=== PATIENT | male | born 1970 | race Caucasian/White ===

== ENCOUNTER 2016-08-31 20:46 | Emergency (ER) | payer OTHER ==
[~2016-08-31] VITALS: Ht 185.4 cm; Wt 99.8 kg
[~2016-08-31 20:46] MED LIST: DOXYCYCLINE100 M5 PO; GLUCOPHAGE1000 MG PO; GLUCOPHAGE500 MG PO; NORCO 10/325 MG1 TAB PO; XANAX XR1 MG PO; ZESTRIL20 MG PO; ZESTRIL30 MG PO
[2016-08-31 20:59] VITALS: BP 165/100
--- NOTE | 2016-08-31 23:24 | NUR ---
PT TAKEN TO BED 4
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
--- NOTE | 2016-08-31 23:34 | NUR ---
Dr. Rutherford evaluating patient at bedside.
[2016-08-31] MEDS ORDERED: HYDROmorphone PFS 2 MG/ML SYR IM ONE (23:40)
[2016-08-31] MEDS ORDERED: ONDANSETRON 4 MG/2 ML VIAL IM ONE (23:40)
[2016-09-01 00:50] VITALS: BP 142/87
--- NOTE | 2016-09-01 00:50 | NUR ---
Patient discharged with v/s stable. Written and verbal after care instructions given and explained. Patient alert, oriented and verbalized understanding of instructions. Ambulatory with steady gait. All questions addressed prior to discharge. ID band removed. Patient advised to follow up with PMD. Rx of FIORINAL 50/325/40 AND ZOFRAN ODT 4MG given. Patient educated on indication of medication including possible reaction and side effects. Opportunity to ask questions provided and answered.
== END 2016-09-01 00:50 | disposition home or self-care (01) ==
LOC: MED 20:46
DX: G43.909 Migraine, unspecified, not intractable, without status migrainosus (principal); I10 Essential (primary) hypertension
CPT/HCPCS: 96372; 99284; J1170; J2405

== ENCOUNTER 2016-09-27 09:16 | Emergency (ER) | payer OTHER ==
[~2016-09-27] VITALS: Ht 185.4 cm; Wt 99.8 kg
[2016-09-27 09:33] VITALS: BP 148/98
--- NOTE | 2016-09-27 09:40 | NUR ---
PT AMBULATED TO BED 2
--- NOTE | 2016-09-27 09:50 | NUR ---
46M BIB SELF TO ED WITH C/O MIGRAINE HEADACHE X 8 HOURS TODAY; PT DENIES INJURY OR TRAUMA TO HEAD AT THIS TIME. DENIES DIARRHEA; SKIN IS PINK/WARM/DRY; AAOX4 WITH EVEN AND STEADY GAIT; LUNGS CLEAR BL; HR EVEN AND REGULAR; PT DENIES ANY FEVER, CP, SOB, OR COUGH AT THIS TIME; PATIENT STATES PAIN OF 10/10 AT THIS TIME; VSS; PATIENT POSITIONED FOR COMFORT; HOB ELEVATED; BEDRAILS UP X2; BED DOWN. ER MD MADE AWARE OF PT STATUS.
--- NOTE | 2016-09-27 10:23 | NUR ---
AAO PT BEING ASSESS BY DR BANSAL AT BEDSIDE
[2016-09-27] MEDS ORDERED: ONDANSETRON 4 MG/2 ML VIAL IVP ONE (10:25)
[2016-09-27] MEDS ORDERED: HYDROmorphone 1 MG/ML AMP IVP ONE ×2 (10:25→12:35)
[2016-09-27] MEDS ORDERED: NACL 0.9% 1,000 ML IV ONE (10:25)
[2016-09-27 13:05] VITALS: BP 138/88
--- NOTE | 2016-09-27 13:05 | NUR ---
Patient discharged with v/s stable. Written and verbal after care instructions given and explained. Patient alert, oriented and verbalized understanding of instructions. Ambulatory with steady gait. All questions addressed prior to discharge. ID band removed. Patient advised to follow up with PMD. Rx of ZOFRAN, TYLENOL WITH CODEINE given. Patient educated on indication of medication including possible reaction and side effects. Opportunity to ask questions provided and answered.
== END 2016-09-27 13:05 | disposition home or self-care (01) ==
LOC: MED 09:16
DX: G43.909 Migraine, unspecified, not intractable, without status migrainosus (principal); I10 Essential (primary) hypertension; E11.9 Type 2 diabetes mellitus without complications; E78.00 Pure hypercholesterolemia, unspecified
CPT/HCPCS: 82948; 96361; 96374; 96375; 96376; 99285; J1170; J2405; J7030

== ENCOUNTER 2016-10-26 14:17 | Emergency (ER) | payer OTHER ==
[~2016-10-26] VITALS: Ht 185.4 cm; Wt 107.5 kg
[2016-10-26 14:26] VITALS: BP 160/112
--- NOTE | 2016-10-26 15:54 | NUR ---
Patient ambulated to bed 7. RN evaluating patient at bedside.
--- NOTE | 2016-10-26 15:56 | NUR ---
Note undone in EDM - 10/26/16 at 1617 by [facility] 46M BIB SELF C/O 20 YEAR CHRONIC MIGRAINE HEADACHE W/ INCREASED PAIN X LAST NIGHT; PT C/O THROBBING RT SIDED MIGRAINE, NON-RADIATING, 8/10 X LAST NIGHT; DENIES TRAUMA OR INJURY TO HEAD; DENIES BLURRY VISION AT THIS TIME; PT STATES HAD 4 EPISODES OF VOMITING TODAY, BUT DENIES DIARRHEA AT THIS TIME; ABDOMEN SOFT, NON-TENDER, ACTIVE BOWEL SOUNDS X4 QUADRANTS; PT A&OX4, PERRL, BL LUNG SOUNDS CLEAR, RR EVEN/UNLABORED, SKIN IS WARM/DRY/INTACT AT THIS TIME; STEADY GAIT; PT RESTING IN BED W/ HOB ELEVATED AND IN LOWEST POSITION; POSITIONED FOR COMFORT; ER MD MADE AWARE OF STATUS. WILL CONTINUE TO MONITOR.
--- NOTE | 2016-10-26 15:56 | NUR ---
46M BIB SELF C/O 20 YEAR CHRONIC MIGRAINE HEADACHE W/ INCREASED PAIN X LAST NIGHT; PT C/O THROBBING RT SIDED MIGRAINE, NON-RADIATING, 8/10 X LAST NIGHT; DENIES TRAUMA OR INJURY TO HEAD; DENIES BLURRY VISION AT THIS TIME; PT STATES HAD 4 EPISODES OF VOMITING TODAY, BUT DENIES DIARRHEA AT THIS TIME; ABDOMEN SOFT, NON-TENDER, ACTIVE BOWEL SOUNDS X4 QUADRANTS; PT NOTED W/ TACHYCARDIA ON THE MONITOR AT THIS TIME. PT A&OX4, PERRL, BL LUNG SOUNDS CLEAR, RR EVEN/UNLABORED, SKIN IS WARM/DRY/INTACT AT THIS TIME; STEADY GAIT; PT RESTING IN BED W/ HOB ELEVATED AND IN LOWEST POSITION; POSITIONED FOR COMFORT; ER MD MADE AWARE OF STATUS. WILL CONTINUE TO MONITOR.
--- NOTE | 2016-10-26 16:19 | NUR ---
ER MD DR. BANSAL EVALUATING PT AT BEDSIDE.
[2016-10-26] MEDS ORDERED: diphenhydrAMINE 50 MG/ML VIAL IVP ONE (16:55)
[2016-10-26] MEDS ORDERED: ONDANSETRON 4 MG/2 ML VIAL IVP ONE (16:55)
[2016-10-26] MEDS ORDERED: HYDROmorphone PFS 2 MG/ML SYR IVP ONE (16:55)
[2016-10-26] MEDS ORDERED: HYDROmorphone 1 MG/ML AMP IVP ONE (18:30)
--- NOTE | 2016-10-26 19:01 | NUR ---
IV removed, catheter intact and site benign. Applied folded 4x4 gauze and tape to stop bleeding. PT TOLERATED PROCEDURE WELL.
[2016-10-26 19:07] VITALS: BP 135/92
--- NOTE | 2016-10-26 19:07 | NUR ---
Patient discharged with v/s stable. Written and verbal after care instructions given and explained. Patient alert, oriented and verbalized understanding of instructions. Ambulatory with steady gait. All questions addressed prior to discharge. ID band removed. Patient advised to follow up with PMD. Rx of ZOFRAN ODT 4MG & TYLENOL W/ CODEINE NO. 3 TAB given. Patient educated on indication of medication including possible reaction and side effects. Opportunity to ask questions provided and answered.
--- NOTE | 2016-10-26 19:09 | NUR ---
Chacorta padilla in EDM - 10/26/16 at 1910 by MEDHANNAH IV removed, catheter intact and site benign. Applied folded 4x4 gauze and tape to stop bleeding. PT TOLERATED PROCEDURE WELL.
== END 2016-10-26 19:07 | disposition home or self-care (01) ==
LOC: MED 14:17
DX: G43.909 Migraine, unspecified, not intractable, without status migrainosus (principal); I10 Essential (primary) hypertension; E11.9 Type 2 diabetes mellitus without complications
CPT/HCPCS: 96374; 96375; 96376; 99284; J1170; J1200; J2405

== ENCOUNTER 2016-11-22 21:01 | Emergency (ER) | payer OTHER ==
[~2016-11-22] VITALS: Ht 185.4 cm; Wt 104.3 kg
[~2016-11-22 21:01] MED LIST changes: -DOXYCYCLINE100 M5 PO; -GLUCOPHAGE1000 MG PO; -GLUCOPHAGE500 MG PO; +LISI30TA6 PO; +METF500T PO; -NORCO 10/325 MG1 TAB PO; -XANAX XR1 MG PO; -ZESTRIL20 MG PO; -ZESTRIL30 MG PO
[2016-11-22 21:14] VITALS: BP_SYST 137; BP_SYST 165; BP_DIAS 85; BP_DIAS 99
--- NOTE | 2016-11-22 21:29 | NUR ---
PT TAKEN TO OF2
--- NOTE | 2016-11-22 21:58 | NUR ---
Dr. Finch evaluating patient
[2016-11-22] MEDS ORDERED: DEXAMETHASONE 10 MG/ML VIAL IM ONE (22:00)
[2016-11-22] MEDS ORDERED: METOCLOPRAMIDE 10 MG TAB PO ONE (22:00)
--- NOTE | 2016-11-22 22:04 | NUR ---
PT MOVED TO BED 7
--- NOTE | 2016-11-22 22:10 | NUR ---
46Y M PRESENTED TO ER C/O OF SEVERE HEADACHE. NO N/V , NO DISTRESS NOTED. V/S WNL.
[2016-11-22] MEDS ORDERED: KETOROLAC 30 MG/ML VIAL IM ONE (22:25)
[2016-11-22] MEDS ORDERED: MORPHINE SULFATE 4 MG/ML SYR IM ONE (23:25)
[2016-11-23 00:03] VITALS: BP 130/80
--- NOTE | 2016-11-23 00:03 | NUR ---
Patient discharged with v/s stable. Written and verbal after care instructions given and explained BY DR FRYE. Patient alert, oriented and verbalized understanding of instructions. Ambulatory with steady gait. All questions addressed prior to discharge. ID band removed. Patient advised to follow up with PMD. Rx of KEFLEX given. Patient educated on indication of medication including possible reaction and side effects. Opportunity to ask questions provided and answered.
== END 2016-11-23 00:03 | disposition home or self-care (01) ==
LOC: MED 21:01
DX: G43.909 Migraine, unspecified, not intractable, without status migrainosus (principal); L30.9 Dermatitis, unspecified; E11.9 Type 2 diabetes mellitus without complications; I10 Essential (primary) hypertension; Z90.89 Acquired absence of other organs
CPT/HCPCS: 96372; 99284; J1100; J1885; J2270; J8597; Q0163

== ENCOUNTER 2016-12-20 08:41 | Emergency (ER) | payer OTHER ==
[~2016-12-20] VITALS: Ht 185.4 cm; Wt 99.8 kg
[~2016-12-20 08:41] MED LIST changes: +DOXYCYCLINE100 M5 PO; +GLUCOPHAGE1000 MG PO; +GLUCOPHAGE500 MG PO; -LISI30TA6 PO; -METF500T PO; +NORCO 10/325 MG1 TAB PO; +XANAX XR1 MG PO; +ZESTRIL20 MG PO; +ZESTRIL30 MG PO
[2016-12-20 08:51] VITALS: BP 138/76
--- NOTE | 2016-12-20 08:52 | NUR ---
PT AMBULATED TO BED 4 AT THIS TIME.
--- NOTE | 2016-12-20 08:55 | NUR ---
46M BIB SELF C/O RT SIDED MIGRAINE HEADACHE, PRESSURE/DULL/ACHING, NON-RADIATING, 10/10 X LAST NIGHT; PT STATES HAS HAD CHRONIC MIGRAINE HEADACHES X 15 YEARS; PT A&OX4, PERRLA, PT DENIES VISION LOSS OR VISION CHANGES AT THIS TIME; PT C/O NAUSEA, BUT DENIES VOMITING/DIARRHEA AT THIS TIME; ABDOMEN SOFT, NON-TENDER, ACTIVE BOWEL SOUNDS X 4 QUADRANTS; BL LUNG SOUNDS CLEAR, RR EVEN/UNLABORED, SKIN IS WARM/DRY/INTACT AT THIS TIME; PT RESTING IN BED W/ HOB ELEVATED AND IN LOWEST POSITION; POSITIONED FOR COMFORT; ER MD MADE AWARE OF STATUS. WILL CONTINUE TO MONITOR.
--- NOTE | 2016-12-20 09:03 | NUR ---
Dr. Lawson evaluating patient at bedside.
[2016-12-20] MEDS ORDERED: DEXAMETHASONE 4 MG TAB PO ONE (09:05)
[2016-12-20] MEDS ORDERED: METOCLOPRAMIDE 10 MG TAB PO ONE (09:05)
[2016-12-20] MEDS ORDERED: diphenhydrAMINE 50 MG CAP PO ONE (09:05)
--- NOTE | 2016-12-20 09:19 | NUR ---
PT AMBULATED TO RESTROOM; NO ACUTE DISTRESS NOTED AT THIS TIME.
[2016-12-20] MEDS ORDERED: HYDROcodone/APAP 5/325 MG 1 TAB TAB PO ONE (09:25)
[2016-12-20 09:59] VITALS: BP 121/79
--- NOTE | 2016-12-20 09:59 | NUR ---
Patient discharged with v/s stable. Written and verbal after care instructions given and explained. Patient alert, oriented and verbalized understanding of instructions. Ambulatory with steady gait. All questions addressed prior to discharge. ID band removed. Patient advised to follow up with PMD. Rx of ZOFRAN ODT 4MG & EXCEDRIN MIGRAINE TABLET given. Patient educated on indication of medication including possible reaction and side effects. Opportunity to ask questions provided and answered.
== END 2016-12-20 09:59 | disposition home or self-care (01) ==
LOC: MED 08:41
DX: G43.909 Migraine, unspecified, not intractable, without status migrainosus (principal); E11.9 Type 2 diabetes mellitus without complications; I10 Essential (primary) hypertension; Z90.89 Acquired absence of other organs
CPT/HCPCS: 82948; 99284; J8597; Q0163

== ENCOUNTER 2016-12-21 22:23 | Emergency (ER) | payer OTHER ==
[~2016-12-21] VITALS: Ht 185.4 cm; Wt 99.8 kg
[2016-12-21 22:31] VITALS: BP 151/90
--- NOTE | 2016-12-21 22:37 | NUR ---
TO ER BED 3
--- NOTE | 2016-12-21 22:48 | NUR ---
46Y M PRESENTED IN ER C/O OF MIGRAINE HEADACHES AND VOMITTING X8 HRS. UNABLE TO TAKE PAIN MED DUE TO N/V. PAIN IS 10/10 IN SCALE.
[2016-12-21] MEDS ORDERED: fentaNYL 0.05 MG/ML VIAL IM ONE (23:00)
[2016-12-21] MEDS ORDERED: PROMETHAZINE 25 MG TAB PO STA (23:00)
[2016-12-21] MEDS ORDERED: ONDANSETRON 4 MG ODT PO ONE (23:35)
[2016-12-22 00:55] VITALS: BP 125/90
--- NOTE | 2016-12-22 00:55 | NUR ---
Patient discharged with v/s stable. Written and verbal after care instructions given and explained. Patient alert, oriented and verbalized understanding of instructions. Ambulatory with steady gait. All questions addressed prior to discharge. ID band removed. Patient advised to follow up with PMD. Rx of FIORICET given. Patient educated on indication of medication including possible reaction and side effects. Opportunity to ask questions provided and answered.
== END 2016-12-22 00:55 | disposition home or self-care (01) ==
LOC: MED 22:23
DX: R51 Headache (principal); E11.9 Type 2 diabetes mellitus without complications; I10 Essential (primary) hypertension; E78.00 Pure hypercholesterolemia, unspecified; Z90.89 Acquired absence of other organs
CPT/HCPCS: 70450; 96372; 99284; J3010; S0119

== ENCOUNTER 2016-12-27 13:17 | Emergency (ER) | payer OTHER ==
[~2016-12-27] VITALS: Ht 182.9 cm; Wt 103.0 kg
[~2016-12-27 13:17] MED LIST changes: -DOXYCYCLINE100 M5 PO; -GLUCOPHAGE1000 MG PO; -GLUCOPHAGE500 MG PO; +LISI30TA6 PO; +METF500T PO; -NORCO 10/325 MG1 TAB PO; -XANAX XR1 MG PO; -ZESTRIL20 MG PO; -ZESTRIL30 MG PO
[2016-12-27 13:30] VITALS: BP 85/69
--- NOTE | 2016-12-27 13:44 | NUR ---
notified of pt's b/p and hr--pt complaining of dizziness and headache i took pt's b/p x4 ---2x's each arm with same result, radial palpated hr. As per , pt is to wait in ER lobby for next available room.
--- NOTE | 2016-12-27 15:25 | NUR ---
Patient ambulated to bed 05.
[2016-12-27] MEDS ORDERED: NACL 0.9% 1,000 ML IV ONE (15:29)
[2016-12-27] MEDS ORDERED: ONDANSETRON 4 MG/2 ML VIAL IVP ONE (15:30)
[2016-12-27] MEDS ORDERED: diphenhydrAMINE 50 MG/ML VIAL IVP ONE (15:30)
[2016-12-27] MEDS ORDERED: HYDROmorphone 1 MG/ML AMP IVP ONE (15:30)
--- NOTE | 2016-12-27 15:30 | NUR ---
PATIENT PRESENTS TO ED WITH c/o right sided headache with dizziness x 5 hours was seen here in our ER same symptoms , CT scan completed also left side of nose abrasion type of skin issue, redness--increased in size past 3 days hx---htn, dm rx---lisinopril, metformin. torastatin DENIES N/D; SKIN IS PINK/WARM/DRY; AAOX4 WITH EVEN AND STEADY GAIT; LUNGS CLEAR BL; HR EVEN AND REGULAR; PT DENIES ANY FEVER, CP, SOB, OR COUGH AT THIS TIME; PATIENT STATES PAIN OF 10/10 AT THIS TIME; VSS; PATIENT POSITIONED FOR COMFORT; HOB ELEVATED; BEDRAILS UP X2; BED DOWN. ER MD MADE AWARE OF PT STATUS.
[2016-12-27 17:38] VITALS: BP 138/84
--- NOTE | 2016-12-27 17:38 | NUR ---
Patient discharged with v/s stable. Written and verbal after care instructions given and explained. Patient alert, oriented and verbalized understanding of instructions. Ambulatory with steady gait. All questions addressed prior to discharge. ID band removed. Patient advised to follow up with PMD. Rx of NORCO ZOFRAN given. Patient educated on indication of medication including possible reaction and side effects. Opportunity to ask questions provided and answered.
== END 2016-12-27 17:38 | disposition home or self-care (01) ==
LOC: MED 13:17
DX: G43.909 Migraine, unspecified, not intractable, without status migrainosus (principal); E11.9 Type 2 diabetes mellitus without complications; I10 Essential (primary) hypertension
CPT/HCPCS: 82948; 96361; 96374; 96375; 99284; J1170; J1200; J2405; J7030

== ENCOUNTER 2017-01-26 21:33 | Emergency (ER) | payer OTHER ==
[~2017-01-26] VITALS: Ht 185.4 cm; Wt 104.3 kg
[2017-01-26 21:37] VITALS: BP 155/100
--- NOTE | 2017-01-26 23:00 | NUR ---
PT TAKEN TO BED 3
--- NOTE | 2017-01-26 23:09 | NUR ---
Dr. Chacon evaluating patient at bedside.
--- NOTE | 2017-01-26 23:10 | NUR ---
46Y M BIB SELF C/O ABSCESS TO MID AB X 1 MONTH AND A HALF. PT STATES HE WAS HERE THIS MORNING AND WAS SEEN BY DR MERAZ BUT STILL HAVING PAIN. PT BREATHING IS UNLABORED, CLEAR BILAT. PT IS AAOX 4. 04/28 PAIN
[2017-01-26] MEDS ORDERED: PROMETHAZINE 25 MG/ML VIAL IM ONE (23:15)
[2017-01-26] MEDS ORDERED: fentaNYL 0.05 MG/ML VIAL IM ONE (23:15)
--- NOTE | 2017-01-26 23:36 | NUR ---
Patient discharged with v/s stable. Written and verbal after care instructions given and explained. Patient verbalized understanding. Ambulatory with steady gait. All questions addressed prior to discharge. Advised to follow up with PMD. PT WILL BE GOING HOME WITH MOM FASHION DIRECTOR (YARELY), AT BEDSIDE DURING D/C.
[2017-01-26 23:37] VITALS: BP 147/91
== END 2017-01-26 23:36 | disposition home or self-care (01) ==
LOC: MED 21:33
DX: L03.311 Cellulitis of abdominal wall (principal); R51 Headache; I10 Essential (primary) hypertension; E11.9 Type 2 diabetes mellitus without complications
CPT/HCPCS: 81002; 96372; 99284; J2550; J3010

== ENCOUNTER 2017-02-06 19:09 | Emergency (ER) | payer OTHER ==
[~2017-02-06] VITALS: Ht 185.4 cm; Wt 103.9 kg
[2017-02-06 19:20] VITALS: BP 130/84
--- NOTE | 2017-02-06 23:31 | NUR ---
TO ER OF3
--- NOTE | 2017-02-07 | NUR ---
Patient being evaluated by physician.
[2017-02-07] MEDS ORDERED: ONDANSETRON 4 MG ODT PO ONE (00:05)
[2017-02-07] MEDS ORDERED: fentaNYL 0.05 MG/ML VIAL IM ONE (00:05)
[2017-02-07 00:45] VITALS: BP 127/73
--- NOTE | 2017-02-07 00:45 | NUR ---
Patient discharged with v/s stable. Written and verbal after care instructions given and explained. Patient alert, oriented and verbalized understanding of instructions. Ambulatory with steady gait. All questions addressed prior to discharge. ID band removed. Patient advised to follow up with PMD. Rx of Percogesic given. Patient educated on indication of medication including possible reaction and side effects. Opportunity to ask questions provided and answered.
== END 2017-02-07 00:45 | disposition home or self-care (01) ==
LOC: MED 19:09
DX: R51 Headache (principal); E11.9 Type 2 diabetes mellitus without complications; I10 Essential (primary) hypertension; Z79.899 Other long term (current) drug therapy
CPT/HCPCS: 96372; 99283; J3010; S0119

== ENCOUNTER 2017-04-21 18:53 | Emergency (ER) | payer OTHER ==
[~2017-04-21] VITALS: Ht 185.4 cm; Wt 104.3 kg
[~2017-04-21 18:53] MED LIST changes: +DOXYCYCLINE100 M5 PO; +GLUCOPHAGE1000 MG PO; +GLUCOPHAGE500 MG PO; -LISI30TA6 PO; -METF500T PO; +NORCO 10/325 MG1 TAB PO; +XANAX XR1 MG PO; +ZESTRIL20 MG PO; +ZESTRIL30 MG PO
[2017-04-21 19:02] VITALS: BP 140/117
[2017-04-21] MEDS: diphenhydrAMINE 50 MG/ML VIAL IM ONE (20:37)
[2017-04-21] MEDS: HYDROmorphone PFS 2 MG/ML SYR IM ONE (20:37)
[2017-04-21 21:10] VITALS: BP 137/92
== END 2017-04-21 21:10 | disposition home or self-care (01) ==
LOC: MED 18:53
DX: G43.909 Migraine, unspecified, not intractable, without status migrainosus (principal); E11.9 Type 2 diabetes mellitus without complications; I10 Essential (primary) hypertension; Z79.899 Other long term (current) drug therapy; Z79.84 Long term (current) use of oral hypoglycemic drugs
CPT/HCPCS: 96372; 99284; J1170; J1200

== ENCOUNTER 2017-05-19 23:07 | Emergency (ER) | payer OTHER ==
[~2017-05-19] VITALS: Ht 185.4 cm; Wt 104.3 kg
[~2017-05-19 23:07] MED LIST changes: -DOXYCYCLINE100 M5 PO; -GLUCOPHAGE1000 MG PO; -GLUCOPHAGE500 MG PO; +LISI30TA6 PO; +METF500T PO; -NORCO 10/325 MG1 TAB PO; -XANAX XR1 MG PO; -ZESTRIL20 MG PO; -ZESTRIL30 MG PO
[2017-05-19 23:08] VITALS: BP 100/56
--- NOTE | 2017-05-19 23:17 | NUR ---
PT TAKEN TO BED 11
--- NOTE | 2017-05-19 23:19 | NUR ---
Dr. Costa evaluating patient at bedside.
[2017-05-19] MEDS ORDERED: KETOROLAC 30 MG/ML VIAL IM ONE (23:20)
[2017-05-19] MEDS ORDERED: SUMAtriptan 6 MG/0.5 ML VIAL SUBQ ONE (23:20)
[2017-05-19] MEDS ORDERED: ONDANSETRON 4 MG ODT PO ONE (23:20)
--- NOTE | 2017-05-19 23:20 | NUR ---
PATIENT IS A 47 Y/O MALE WHO PRESENTS TO THE ED C/O MIGRAINE HEADACHE. PT STATES, "IT'S THE WORST ONE I'VE GOTTEN IN AWHILE. DENIES DIARRHEA, REPORTS NAUSEA/VOMITING; SKIN IS PINK/WARM/DRY; AAOX4 WITH EVEN AND STEADY GAIT; PERRLA; LUNGS CLEAR BL; HR EVEN AND REGULAR; PT DENIES ANY FEVER, CP, SOB, OR COUGH AT THIS TIME; PATIENT STATES SHARP PAIN IN THE HEAD OF 10/10 AT THIS TIME; VSS; PATIENT POSITIONED FOR COMFORT; HOB ELEVATED; BEDRAILS UP X2; BED DOWN. ER MD MADE AWARE OF PT STATUS.
[2017-05-20] MEDS ORDERED: HYDROcodone/APAP 5/325 MG 1 TAB TAB PO ONE
[2017-05-20] MEDS ORDERED: APAP/BUTAL/CAFF 325/50/40 MG 1 TAB PO ONE (00:05)
[2017-05-20 00:36] VITALS: BP 141/98
--- NOTE | 2017-05-20 00:36 | NUR ---
Patient discharged with v/s stable. Written and verbal after care instructions given and explained. Patient alert, oriented and verbalized understanding of instructions. Ambulatory with steady gait. All questions addressed prior to discharge. ID band removed. Patient advised to follow up with PMD. Rx of FIORINAL [id number] given. Patient educated on indication of medication including possible reaction and side effects. Opportunity to ask questions provided and answered.
== END 2017-05-20 00:36 | disposition home or self-care (01) ==
LOC: MED 23:07
DX: G43.909 Migraine, unspecified, not intractable, without status migrainosus (principal); R11.0 Nausea; I10 Essential (primary) hypertension; E11.9 Type 2 diabetes mellitus without complications
CPT/HCPCS: 96372; 99284; J1885; J3030; Q0163; S0119

== ENCOUNTER 2017-06-16 22:27 | Emergency (ER) | payer OTHER ==
[~2017-06-16] VITALS: Ht 185.4 cm; Wt 104.3 kg
[2017-06-16 22:35] VITALS: BP 158/90
[2017-06-17] MEDS: METOCLOPRAMIDE 10 MG/2 ML INJ VIAL IM ONE (00:28)
[2017-06-17] MEDS: KETOROLAC 60 MG/2 ML VIAL IM ONE (00:29)
[2017-06-17] MEDS: APAP/BUTAL/CAFF 325/50/40 MG 1 TAB PO ONE (01:22)
[2017-06-17 01:50] VITALS: BP 137/84
== END 2017-06-17 01:50 | disposition home or self-care (01) ==
LOC: MED 22:27
DX: G43.909 Migraine, unspecified, not intractable, without status migrainosus (principal); E11.9 Type 2 diabetes mellitus without complications; I10 Essential (primary) hypertension; Z90.89 Acquired absence of other organs; Z90.49 Acquired absence of other specified parts of digestive tract
CPT/HCPCS: 96372; 99284; J1885; J2765

== ENCOUNTER 2018-01-15 10:07 | Emergency (ER) | payer OTHER ==
[~2018-01-15] VITALS: Ht 185.4 cm; Wt 99.8 kg
[2018-01-15 10:15] VITALS: BP 128/80
--- NOTE | 2018-01-15 10:19 | NUR ---
PT AMBULATES TO BED 12
--- NOTE | 2018-01-15 10:24 | NUR ---
47 YO M TO ER FOR RUQ PAIN X 1 DAY, DENIES N/V/D. ALSO WITH GRADUAL ONSET HEADCAHE WITH RT ARM NUMBNESS. DENIES VISUAL CHANGES. NO FACIAL DROOP, SPEAKING FULL CLR SENTENCES PAIN 04/28. BS ACTIVE X4. NO OTHER MEDICAL CO AT THIS TIME. ER MD MADE AWARE, WILL CONTINUE TO MONITOR. MED HX: MIGRAINES, HTN, DM RX: LISINOPRIL, METFORMIN
[2018-01-15] MEDS ORDERED: NACL 0.9% 500 ML IV ONE (11:10)
[2018-01-15] MEDS ORDERED: KETOROLAC 30 MG/ML VIAL IVP ONE (11:10)
--- NOTE | 2018-01-15 11:37 | NUR ---
IV DISLOGED BY PT. IV DC TIP INTACT
--- NOTE | 2018-01-15 11:40 | NUR ---
PT TO CT VIA W/C IN STABLE CONTITION WITH SCADA OPERATOR
--- NOTE | 2018-01-15 11:56 | NUR ---
PT BACK FROM CT
--- NOTE | 2018-01-15 12:10 | NUR ---
PT TALKING WITH FAMILY AT BEDSIDE IN NO APPEARENT DISTRESS
[2018-01-15] MEDS ORDERED: fentaNYL 0.05 MG/ML VIAL IVP ONE ×2 (12:20→13:00)
[2018-01-15 13:25] VITALS: BP 134/76
--- NOTE | 2018-01-15 13:25 | NUR ---
Patient discharged with v/s stable. Written and verbal after care instructions given and explained. Patient alert, oriented and verbalized understanding of instructions. Ambulatory with steady gait. All questions addressed prior to discharge. ID band removed. Patient advised to follow up with PMD. Rx of MIRALAX, MINIRAL OIL given. Patient educated on indication of medication including possible reaction and side effects. Opportunity to ask questions provided and answered.
== END 2018-01-15 13:25 | disposition home or self-care (01) ==
LOC: MED 10:07
DX: K59.00 Constipation, unspecified (principal); I10 Essential (primary) hypertension; E11.9 Type 2 diabetes mellitus without complications; Z79.84 Long term (current) use of oral hypoglycemic drugs; Z79.899 Other long term (current) drug therapy
CPT/HCPCS: 74176; 81002; 96361; 96374; 96375; 96376; 99284; J1885; J3010

== ENCOUNTER 2018-02-17 00:35 | Emergency (ER) | payer OTHER ==
[~2018-02-17] VITALS: Ht 185.4 cm; Wt 90.7 kg
[2018-02-17 00:38] VITALS: BP 161/109
--- NOTE | 2018-02-17 00:42 | NUR ---
PT AMBULATED TO ER BED 01
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
[2018-02-17] MEDS ORDERED: HYDROcodone/APAP 10/325 MG 1 TAB TAB PO STA (00:56)
[2018-02-17] MEDS ORDERED: IBUPROFEN 800 MG TAB PO ONE (01:00)
[2018-02-17 02:25] VITALS: BP 158/94
--- NOTE | 2018-02-17 02:25 | NUR ---
Patient discharged with v/s stable. Written and verbal after care instructions given and explained. Patient alert, oriented and verbalized understanding of instructions. Ambulatory with steady gait. All questions addressed prior to discharge. ID band removed. Patient advised to follow up with PMD. Rx of NORCO AND MOTRIN given. Patient educated on indication of medication including possible reaction and side effects. Opportunity to ask questions provided and answered.
--- NOTE | 2018-02-17 08:33 | NUR ---
DR. AUGUSTE MADE AWARE OF PATIENT X RAY REPORT PATIENT SPLINTED AND GIVEN DIRECTIONS FOR FOLLOW UP CARE. NO FURTHER CARE NEEDED.
== END 2018-02-17 02:25 | disposition home or self-care (01) ==
LOC: MED 00:35
DX: S52.122A Displaced fracture of head of left radius, initial encounter for closed fracture (principal); R07.81 Pleurodynia; E11.9 Type 2 diabetes mellitus without complications; I10 Essential (primary) hypertension; Z79.84 Long term (current) use of oral hypoglycemic drugs; Z79.899 Other long term (current) drug therapy; V19.9XXA Pedal cyclist (driver) (passenger) injured in unspecified traffic accident, initial encounter; Y93.89 Activity, other specified; Y92.89 Other specified places as the place of occurrence of the external cause; Y99.8 Other external cause status
CPT/HCPCS: 73080; 99284; Q0092

== ENCOUNTER 2018-04-21 18:10 | Emergency (ER) | payer OTHER ==
[~2018-04-21] VITALS: Ht 185.4 cm; Wt 94.6 kg
[2018-04-21 18:28] VITALS: BP 109/78
--- NOTE | 2018-04-21 18:55 | NUR ---
UPDATED PT WITH BED AVAILABILITY
--- NOTE | 2018-04-21 20:01 | NUR ---
PT AMB W/O ASST TO ER BED 9
--- NOTE | 2018-04-21 20:03 | NUR ---
PT PRESENTS TO ED WITH C/O MIGRAINE X 1 DAY WITH N/V AND LIGHT SENSATIVITY. PT REPORTS HX OF MIGRAINES. PT IS ALERT AND ORIENTED TO NAME, EVENT, PLACE, AND TIME. PT STATES HE TRIED OTC EXCEDRIN AND RX ZOFRAN WITH NO RELIEF PT PLACED IN BED AND PENDING MD OCONNELL.
[2018-04-21] MEDS ORDERED: diphenhydrAMINE 50 MG/ML VIAL IM ONE (21:25)
[2018-04-21] MEDS ORDERED: PROCHLORPERAZINE 10 MG/2 ML VIAL IM ONE (21:25)
--- NOTE | 2018-04-21 21:52 | NUR ---
PT AMBULATED TO RESTROOM WITHOUT DIFFICULTY.
--- NOTE | 2018-04-21 22:07 | NUR ---
PT BACK FROM RADIOLIGY Addendum: 04/21/18 at 2209 by [facility]
[2018-04-21] MEDS ORDERED: KETOROLAC 60 MG/2 ML VIAL IM ONE (22:10)
[2018-04-21 22:35] VITALS: BP 115/79
--- NOTE | 2018-04-21 22:35 | NUR ---
Patient discharged with v/s stable. Written and verbal after care instructions given and explained. Patient alert, oriented and verbalized understanding of instructions. Ambulatory with steady gait. All questions addressed prior to discharge. ID band removed. Patient advised to follow up with PMD. Rx of MOTRIN, TRAMADOL given. Patient educated on indication of medication including possible reaction and side effects. Opportunity to ask questions provided and answered.
== END 2018-04-21 22:35 | disposition home or self-care (01) ==
LOC: MED 18:10
DX: G43.909 Migraine, unspecified, not intractable, without status migrainosus (principal); G89.29 Other chronic pain; M79.602 Pain in left arm; E11.9 Type 2 diabetes mellitus without complications; I10 Essential (primary) hypertension; Z88.8 Allergy status to other drugs, medicaments and biological substances
CPT/HCPCS: 73030; 73080; 73110; 96372; 99284; J0780; J1200; J1885

== ENCOUNTER 2018-11-14 13:08 | Emergency (ER) | payer OTHER ==
[~2018-11-14] VITALS: Ht 185.4 cm; Wt 102.1 kg
[2018-11-14 13:21] VITALS: BP 139/98
--- NOTE | 2018-11-14 13:36 | NUR ---
PATIENT PRESENTS TO ED WITH C/O PROGESSING HEADACHE BEHING OD RADIATING RIGHT TEMPORAL AREA X T0DAY WITH N/V ---DENIES INJURY/TRAUMA--- ADMITS TO LIGHT SENSITIVITY--FULL CLEAR SPEECH, AMBULATORY WITH STEADY GAIT EQUAL CO FOUNDER AND CTO/PUSHES/PULL, NO DRIFT NOTED .; SKIN IS PINK/WARM/DRY; AAOX4 WITH EVEN AND STEADY GAIT; LUNGS CLEAR BL; HR EVEN AND REGULAR; PT DENIES ANY FEVER, CP, SOB, OR COUGH AT THIS TIME; PATIENT STATES PAIN OF 10/10 AT THIS TIME; VSS; PATIENT POSITIONED FOR COMFORT; HOB ELEVATED; BEDRAILS UP X2; BED DOWN. ER MD MADE AWARE OF PT STATUS.
--- NOTE | 2018-11-14 13:41 | NUR ---
AMBULATORY TO RESTROOM WITH STEADY GAIT
--- NOTE | 2018-11-14 14:17 | NUR ---
Dr. Medeiros evaluating patient at bedside.
[2018-11-14] MEDS ORDERED: NALBUPHINE 10 MG/ML AMP IM ONE (14:20)
[2018-11-14 15:04] VITALS: BP 118/96
== END 2018-11-14 15:04 | disposition home or self-care (01) ==
LOC: MED 13:08
DX: G43.909 Migraine, unspecified, not intractable, without status migrainosus (principal); E11.9 Type 2 diabetes mellitus without complications; I10 Essential (primary) hypertension; Z79.84 Long term (current) use of oral hypoglycemic drugs; Z79.899 Other long term (current) drug therapy
CPT/HCPCS: 82948; 96372; 99283; J2300

== ENCOUNTER 2019-01-17 20:34 | Emergency (ER) | payer OTHER ==
[~2019-01-17] VITALS: Ht 185.4 cm; Wt 104.3 kg
[2019-01-17 20:48] VITALS: BP 144/80
--- NOTE | 2019-01-17 20:50 | NUR ---
TO LOBBY A/W BED, AMBULATORY
--- NOTE | 2019-01-17 21:28 | NUR ---
PT AMBULATORY TO CHAIR Silvio.
[2019-01-17] MEDS ORDERED: NACL 0.9% 1,000 ML IV ONE (21:43)
--- NOTE | 2019-01-17 21:43 | NUR ---
AMBULATED TO ER BED 5
[2019-01-17] MEDS ORDERED: METOCLOPRAMIDE 10 MG/2 ML INJ VIAL IVP ONE (21:45)
[2019-01-17] MEDS ORDERED: diphenhydrAMINE 50 MG/ML VIAL IVP ONE (21:45)
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
--- NOTE | 2019-01-17 21:50 | NUR ---
PT TAKEN TO XR
--- NOTE | 2019-01-17 22:00 | NUR ---
PT BACK FROM XR
--- NOTE | 2019-01-17 22:29 | NUR ---
PT REPORTS RELIEF FROM NAUSEA AFTER MEDS. REPORTS PERSISTENT HEADACHE AND R LOWER RIBS PAIN. DR FRANKLIN MADE AWARE.
[2019-01-17] MEDS ORDERED: KETOROLAC 15 MG/ML VIAL IVP ONE (23:00)
--- NOTE | 2019-01-17 23:07 | NUR ---
PT C/O PERSISTENT MIGRAINE HEADACHE. ALSO C/O TOLERABLE R LOWER RIBS PAIN. DENIES NAUSEA AFTER MEDS. VSS. RR EVEN AND UNLABORED, PT WITH FACIAL GRIMACING. DR FRANKLIN MADE AWARE. ADMINISTERED TORADOL 30MG IVP WITH EDUCATION, PT VERBALIZED UNDERSTANDING, TOLERATED WELL.
[2019-01-17] MEDS ORDERED: MORPHINE SULFATE 4 MG/ML SYR IVP ONE (23:35)
[2019-01-18 00:23] VITALS: BP 145/98
--- NOTE | 2019-01-18 00:23 | NUR ---
Patient discharged with v/s stable. Written and verbal after care instructions given and explained. Patient alert, oriented and verbalized understanding of instructions. Ambulatory with steady gait. All questions addressed prior to discharge. ID band removed. Patient advised to follow up with PMD. Rx of MOTRIN, NORCO, ZOFRAN given. Patient educated on indication of medication including possible reaction and side effects. Opportunity to ask questions provided and answered.
== END 2019-01-18 00:17 | disposition home or self-care (01) ==
LOC: MED 20:34
DX: S22.31XD Fracture of one rib, right side, subsequent encounter for fracture with routine healing (principal); G43.909 Migraine, unspecified, not intractable, without status migrainosus; E11.9 Type 2 diabetes mellitus without complications; I10 Essential (primary) hypertension; E78.5 Hyperlipidemia, unspecified; Z90.49 Acquired absence of other specified parts of digestive tract; Z98.890 Other specified postprocedural states; Z79.84 Long term (current) use of oral hypoglycemic drugs; Z79.899 Other long term (current) drug therapy; X58.XXXD Exposure to other specified factors, subsequent encounter
CPT/HCPCS: 71101; 96374; 96375; 99283; J1200; J1885; J2270; J2765; J7030

== ENCOUNTER 2019-04-12 19:18 | Emergency (ER) | payer OTHER ==
[~2019-04-12] VITALS: Ht 185.4 cm; Wt 114.0 kg
[2019-04-12 19:22] VITALS: BP 136/76
--- NOTE | 2019-04-12 19:31 | NUR ---
PT AMBULATED BACK TO LOBBY WITH STEADY GAIT. AWAITING AVAILABLE BED.
--- NOTE | 2019-04-12 20:05 | NUR ---
PT AMBULATED TO BED #3
--- NOTE | 2019-04-12 20:07 | NUR ---
48/M PRESENTED TO ED WITH C/O 04/28 RIGHT SIDE MIGRAINE HERNANDEZ X 3-4 HOURS + N/V. PT HAS HX OF MIGRAINES. TRIED TAKING PRECRIBED FIORICET AND WAS NOT ABLE TO HOLD IT DOWN. PMH-- HTN, DM TYPE 2, MIGRAINES RX METFORMIN, LISINOPRIL
[2019-04-12] MEDS ORDERED: NACL 0.9% 1,000 ML IV ONE (20:25)
[2019-04-12] MEDS ORDERED: METOCLOPRAMIDE 10 MG/2 ML INJ VIAL IVP ONE (20:25)
[2019-04-12] MEDS ORDERED: diphenhydrAMINE 50 MG/ML VIAL IM ONE ×2 (20:25→20:50)
[2019-04-12] MEDS ORDERED: KETOROLAC 30 MG/ML VIAL IVP ONE (20:25)
[2019-04-12] MEDS ORDERED: KETOROLAC 30 MG/ML VIAL IM ONE (20:50)
[2019-04-12] MEDS ORDERED: METOCLOPRAMIDE 10 MG/2 ML INJ VIAL IM ONE (20:50)
--- NOTE | 2019-04-12 20:52 | NUR ---
UNABLE TO GET IV ACCESS. PT REFUSED. MADE MINE AWARE. MINE CHANGED ORDERS. WILL ADMINISTER NEW ORDERS.
[2019-04-12] MEDS ORDERED: MORPHINE SULFATE 4 MG/ML SYR IM ONE (21:40)
[2019-04-12 22:03] VITALS: BP 125/75
--- NOTE | 2019-04-12 22:03 | NUR ---
PT DISCHARGED WITH PAPERWORK. NO RX PROVIDED. EDUCATED PT REGARDING NONPHARMACOLOGICAL METHODS FOR PAIN. EDUCATED PT REGARDING D/C DIAGNOSIS AND INSTRUCTIONS. PT VERBALIZED UNDERSTANDING OF TEACHING. TOLD PT TO FOLLOW UP WITH PCP AND WHEN TO RETURN TO ED. PT VSS. ALL QUESTIONS ANSWERED.
== END 2019-04-12 22:03 | disposition home or self-care (01) ==
LOC: MED 19:18
DX: G43.909 Migraine, unspecified, not intractable, without status migrainosus (principal); I10 Essential (primary) hypertension; E11.9 Type 2 diabetes mellitus without complications; Z90.89 Acquired absence of other organs; Z79.84 Long term (current) use of oral hypoglycemic drugs; Z79.899 Other long term (current) drug therapy
CPT/HCPCS: 96372; 99283; J1200; J1885; J2270; J2765

== ENCOUNTER 2019-07-10 07:10 | Emergency (ER) | payer OTHER ==
[~2019-07-10] VITALS: Ht 185.4 cm; Wt 102.1 kg
[2019-07-10 07:16] VITALS: BP 111/76
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
--- NOTE | 2019-07-10 07:33 | NUR ---
Dr. Medeiros is evaluating the patient at bedside.
[2019-07-10] MEDS ORDERED: NACL 0.9% 1,000 ML IV SCH (07:39)
[2019-07-10] MEDS ORDERED: NACL 0.9% 1,000 ML IV ONE (07:39)
[2019-07-10] MEDS ORDERED: KETOROLAC 30 MG/ML VIAL IVP ONE (07:40)
[2019-07-10] MEDS ORDERED: PROMETHAZINE 25 MG/ML VIAL IM ONE (07:40)
[2019-07-10] MEDS ORDERED: MORPHINE SULFATE 4 MG/ML SYR IVP ONE ×2 (07:40→10:00)
--- NOTE | 2019-07-10 07:52 | NUR ---
PT WENT FOR X-RAY BY WHEELCHAIR.
--- NOTE | 2019-07-10 08:00 | NUR ---
Patient returned from CT scan. RN re-evaluating the patient at bedside.
--- NOTE | 2019-07-10 08:03 | NUR ---
LAB AT BEDSIDE DRAWING ORDERED LAB WORK.
[2019-07-10 08:25] LABS: BASOPHILS % (AUTO) 0.2 % (0.0-2.0); EOSINOPHILS # (AUTO) 0.1 K/uL (0-0.4); EOSINOPHILS % (AUTO) 1.2 % (0.0-4.0); HEMOGLOBIN 14.1 g/dL (12.0-18.0); LYMPHOCYTES # (AUTO) 1.6 K/uL (2.0-11.5); LYMPHOCYTES % (AUTO) 14.2 % (20.5-51.1); MEAN CORPUSCULAR HEMOGLOBIN 31 pg (27-31); MEAN CORPUSCULAR HGB CONC 34 g/dL (33-37); MEAN CORPUSCULAR VOLUME 91.8 fL (80-94); MONOCYTES # (AUTO) 0.6 K/uL (0.8-1.0); MONOCYTES % (AUTO) 5.6 % (1.7-9.3); NEUTROPHILS # (AUTO) 8.8 K/uL (1.8-7.7); NEUTROPHILS % (AUTO) 78.8 % (42.2-75.2); PLATELET COUNT (AUTO) 295 K/uL (140-450); RED BLOOD CELL COUNT(AUTO) 4.58 MIL/uL (4.20-6.10); RED CELL DISTRIBUTION WIDTH 14.3 % (11.6-13.7); WHITE BLOOD COUNT (AUTO) 11.1 K/uL (4.8-10.8)
--- NOTE | 2019-07-10 08:33 | NUR ---
ULTRASOUND AT BEDSIDE
[2019-07-10 08:52] LABS: ANION GAP 18.4 (8-16); CARBON DIOXIDE 23.7 mmol/L (21-32); CREATININE 1.2 mg/dL (0.7-1.3); POTASSIUM 4.1 mmol/L (3.5-5.1)
[2019-07-10 08:54] LABS: PROTHROMBIN TIME 9.3 secs (10.8-13.4)
[2019-07-10 08:55] LABS: APPEARANCE,URINE CLEAR (CLEAR); BILIRUBIN,URINE NEGATIVE (NEGATIVE); BLOOD, URINE NEGATIVE (NEGATIVE); COLOR,URINE YELLOW (YELLOW); LEUKOCYTE ESTERASE ,URINE NEGATIVE (NEGATIVE); NITRITE, URINE NEGATIVE (NEGATIVE); UGLUCOSE NEGATIVE (NEGATIVE)
[2019-07-10 08:57] LABS: ALBUMIN 4.2 g/dL (3.4-5.0); TOTAL BILIRUBIN 0.2 mg/dL (0.0-1.0)
[2019-07-10 08:57] LABS: BARBITURATE, URINE NEG. ng/ml (NEG <=200); BENZODIAZEPINE, URINE NEG. ng/mL (NEG <=200); CANNABINOID, URINE NEG. ng/mL (NEG <=50); COCAINE, URINE NEG. ng/mL (NEG <=300); OPIATE, URINE NEG. ng/mL (NEG <=2000); PHENCYCLIDINE SCREEN,URINE NEG. ng/mL (NEG <=25)
--- NOTE | 2019-07-10 09:45 | NUR ---
PT AMBULATED TO RESTROOM WITHOUT DIFFICULTY. IV RECONECTED, NS RUNNING.
--- NOTE | 2019-07-10 09:51 | NUR ---
PT STATES HE IS STILL HAVING PAIN 02/25. MD ADVISED, ADDITIONAL PAIN MEDICATION PRESCRIBED.
--- NOTE | 2019-07-10 10:21 | NUR ---
PT AMBULATED TO RESTROOM WITHOUT DIFFICULTY.
[2019-07-10 10:49] VITALS: BP 121/73
--- NOTE | 2019-07-10 10:49 | NUR ---
Patient discharged with v/s stable. Written and verbal after care instructions given and explained. Patient alert, oriented and verbalized understanding of instructions. Ambulatory with steady gait. All questions addressed prior to discharge. ID band removed. Patient advised to follow up with PMD. Rx of BENTYL, TRAMADOL given. Patient educated on indication of medication including possible reaction and side effects. Opportunity to ask questions provided and answered.
== END 2019-07-10 10:49 | disposition home or self-care (01) ==
LOC: MED 07:10
DX: R10.9 Unspecified abdominal pain (principal); M54.9 Dorsalgia, unspecified; E66.9 Obesity, unspecified; I10 Essential (primary) hypertension; E11.9 Type 2 diabetes mellitus without complications; G43.909 Migraine, unspecified, not intractable, without status migrainosus; Z68.29 Body mass index [BMI] 29.0-29.9, adult; Z90.49 Acquired absence of other specified parts of digestive tract; Z79.84 Long term (current) use of oral hypoglycemic drugs; Z79.899 Other long term (current) drug therapy
CPT/HCPCS: 36415; 74176; 76705; 80053; 80305; 81003; 82150; 82977; 83036; 83690; 84550; 85025; 85610; 96372; 96374; 96375; 96376; 99284; J1885; J2270; J2550; Q0092

== ENCOUNTER 2019-08-09 17:34 | Emergency (ER) | payer OTHER ==
[~2019-08-09] VITALS: Ht 185.4 cm; Wt 99.8 kg
[2019-08-09 17:46] VITALS: BP 159/92
[2019-08-09] MEDS ORDERED: ONDANSETRON 4 MG ODT PO ONE (17:50)
--- NOTE | 2019-08-09 17:50 | NUR ---
PT REQUESTING ZOFRAN FOR NAUSEA WHILE WAITING FOR BED IN ED. VERBAL ORDER FROM [facility] RECIEVED.
--- NOTE | 2019-08-09 20:15 | NUR ---
PT AMBULATED TO [facility]
[2019-08-09] MEDS ORDERED: KETOROLAC 60 MG/2 ML VIAL IM ONE (20:30)
--- NOTE | 2019-08-09 20:45 | NUR ---
PT CAME INTO ER WITH C/O HEADACHE. PT STATED HE WAS A 8/10 PAIN AT THIS TIME. PT IS ALERT AND ABLE TO ANSWER QUESTIONS APPROPIRATELY. ERMD MADE AWARE OF STATUS, SAFETY MEASURES IN PLACE.
[2019-08-09 20:55] VITALS: BP 159/92
--- NOTE | 2019-08-09 20:55 | NUR ---
Patient discharged with v/s stable. Written and verbal after care instructions given and explained. Patient verbalized understanding. Ambulatory with steady gait. All questions addressed prior to discharge. Advised to follow up with PMD.
== END 2019-08-09 20:55 | disposition home or self-care (01) ==
LOC: MED 17:34
DX: G43.909 Migraine, unspecified, not intractable, without status migrainosus (principal); E11.9 Type 2 diabetes mellitus without complications; I10 Essential (primary) hypertension; Z90.49 Acquired absence of other specified parts of digestive tract; Z79.899 Other long term (current) drug therapy; Z79.84 Long term (current) use of oral hypoglycemic drugs
CPT/HCPCS: 96372; 99283; J1885; Q0162

== ENCOUNTER 2021-01-02 23:55 | Emergency (ER) | payer OTHER ==
[~2021-01-02] VITALS: Ht 185.4 cm; Wt 108.9 kg
[2021-01-03 00:02] VITALS: BP 143/98
--- NOTE | 2021-01-03 00:02 | NUR ---
TO BED AMBULATORY
[2021-01-03] MEDS ORDERED: NACL 0.9% 1,000 ML IV ONE (00:45)
[2021-01-03] MEDS ORDERED: MORPHINE SULFATE 4 MG/ML SYR IVP ONE ×2 (00:45→02:45)
[2021-01-03 00:57] LABS: BASOPHILS # (AUTO) 0.1 K/uL (0.00-0.22); BASOPHILS % (AUTO) 0.6 % (0.0-2.0); EOSINOPHILS # (AUTO) 0.4 K/uL (0-0.4); EOSINOPHILS % (AUTO) 4.3 % (0.0-4.0); HEMATOCRIT 43.7 % (36-52); HEMOGLOBIN 15.1 g/dL (12.0-18.0); LYMPHOCYTES % (AUTO) 22.6 % (20.5-51.1); MEAN CORPUSCULAR HEMOGLOBIN 32 pg (27-31); MEAN CORPUSCULAR HGB CONC 35 g/dL (33-37); MEAN CORPUSCULAR VOLUME 92.4 fL (80-94); MONOCYTES # (AUTO) 0.8 K/uL (0.8-1.0); MONOCYTES % (AUTO) 8.5 % (1.7-9.3); NEUTROPHILS # (AUTO) 5.6 K/uL (1.8-7.7); PLATELET COUNT (AUTO) 344 K/uL (140-450); RED BLOOD CELL COUNT(AUTO) 4.73 MIL/uL (4.20-6.10); RED CELL DISTRIBUTION WIDTH 13.7 % (11.6-13.7); WHITE BLOOD COUNT (AUTO) 8.8 K/uL (4.8-10.8)
[2021-01-03] MEDS ORDERED: MORPHINE SULFATE 4 MG/ML SYR ONE (00:59)
--- NOTE | 2021-01-03 01:04 | NUR ---
Dr. Chacon with pt for MSE
[2021-01-03 01:06] LABS: ANION GAP 17.9 (8-16); POTASSIUM 3.9 mmol/L (3.5-5.1)
--- NOTE | 2021-01-03 01:06 | NUR ---
provided urinal for pt to void.
--- NOTE | 2021-01-03 01:06 | NUR ---
CT contrast consent signed. Dr. Chacon explained benefits of procedure and pt gave verbal understanding.
[2021-01-03 01:12] LABS: TOTAL BILIRUBIN 0.2 mg/dL (0.0-1.0)
[2021-01-03 01:18] LABS: APPEARANCE,URINE CLEAR (CLEAR); BILIRUBIN,URINE NEGATIVE (NEGATIVE); BLOOD, URINE NEGATIVE (NEGATIVE); COLOR,URINE YELLOW (YELLOW); LEUKOCYTE ESTERASE ,URINE NEGATIVE (NEGATIVE); NITRITE, URINE NEGATIVE (NEGATIVE); PH,URINE 7.5 (5.0-9.0); UGLUCOSE NEGATIVE (NEGATIVE)
--- NOTE | 2021-01-03 01:22 | NUR ---
PT TAKEN TO CT VIA W/C
[2021-01-03 01:30] LABS: BARBITURATE, URINE NEGATIVE ng/ml (NEG <=200); BENZODIAZEPINE, URINE POSITIVE ng/mL (NEG <=200); CANNABINOID, URINE NEGATIVE ng/mL (NEG <=50); COCAINE, URINE NEGATIVE ng/mL (NEG <=300); OPIATE, URINE POSITIVE ng/mL (NEG <=2000); PHENCYCLIDINE SCREEN,URINE NEGATIVE ng/mL (NEG <=25)
--- NOTE | 2021-01-03 01:34 | NUR ---
PT RETURN FROM CT
[2021-01-03 02:47] VITALS: BP 149/91
[2021-01-03] MEDS ORDERED: ACET-8386 PO (03:22)
[2021-01-03] MEDS ORDERED: LID5T TP (03:22)
[2021-01-03] MEDS ORDERED: NAPR-54 PO (03:22)
--- NOTE | 2021-01-03 03:45 | NUR ---
d/c with VSS. d/c education given. opportunity to ask questions given and answered. rx of norco, naprosyn, and lidocaine patch given. IV site removed, bleeding controlled with sterile gauze and reinforced with tape.
== END 2021-01-03 03:45 | disposition home or self-care (01) ==
LOC: MED 23:55
DX: R07.9 Chest pain, unspecified (principal); R10.9 Unspecified abdominal pain; E11.9 Type 2 diabetes mellitus without complications; I10 Essential (primary) hypertension; Z79.899 Other long term (current) drug therapy
CPT/HCPCS: 36415; 74177; 80053; 80305; 81003; 85025; 96361; 96374; 96376; 99285; J2270; J7030; Q9967

== ENCOUNTER 2021-01-19 12:27 | Emergency (ER) | payer OTHER ==
[~2021-01-19] VITALS: Ht 182.9 cm; Wt 99.8 kg
[~2021-01-19 12:27] MED LIST changes: +ACET-8386 PO; +LID5T TP; +NAPR-54 PO
[2021-01-19 12:37] VITALS: BP 167/94
--- NOTE | 2021-01-19 12:42 | NUR ---
PATIENT TO LOBBY
--- NOTE | 2021-01-19 13:55 | NUR ---
PT AMBULATED TO BED 1.
[2021-01-19] MEDS ORDERED: METH-1681 PO (14:23)
--- NOTE | 2021-01-19 14:39 | NUR ---
50 YEAR OLD MALE COMPLAINS OF LEFT SIDED RIB PAIN X SEVERAL WEEKS. PT STATES THAT HE HAS HAD SOME SHORTNESS OF BREATHE DUE TO PAIN, AND THAT PAIN STARTED EVER SINCE A FALL. PT AOX4, BREATHING EVEN AND UNLABORED, SKIN WAMR AND DRY. BED IN LOWEST POSITION, LOCKED, BED RAIL UPX1. PMH - DM2, HTN, APPENDECTOMY ALLERGIES - NKA
[2021-01-19] MEDS ORDERED: ACET-9527 PO (14:46)
[2021-01-19 14:55] VITALS: BP 167/94
--- NOTE | 2021-01-19 14:55 | NUR ---
Patient discharged with v/s stable. Written and verbal after care instructions about rib contusion given and explained. Patient alert, oriented and verbalized understanding of instructions. Ambulatory with steady gait. All questions addressed prior to discharge. ID band removed. Patient advised to follow up with PMD. Rx of robaxin given. Patient educated on indication of medication including possible reaction and side effects. Opportunity to ask questions provided and answered.
== END 2021-01-19 14:55 | disposition home or self-care (01) ==
LOC: MED 12:27
DX: R07.81 Pleurodynia (principal); E11.9 Type 2 diabetes mellitus without complications; I10 Essential (primary) hypertension; Z79.84 Long term (current) use of oral hypoglycemic drugs; Z79.899 Other long term (current) drug therapy
CPT/HCPCS: 71101; 81002; 99283

== ENCOUNTER 2021-10-03 03:03 | Emergency (ER) | payer OTHER ==
[~2021-10-03] VITALS: Ht 185.4 cm; Wt 113.4 kg
[~2021-10-03 03:03] MED LIST changes: +ACET-9527 PO; +METH-1681 PO
[2021-10-03 03:11] VITALS: BP 151/118
--- NOTE | 2021-10-03 03:17 | NUR ---
Dr. Caba at triage to exam patient.
--- NOTE | 2021-10-03 03:20 | NUR ---
Ambulatory to bed 9.
[2021-10-03] MEDS: KETOROLAC 30 MG/ML VIAL IM ONE (03:28)
[2021-10-03] MEDS: diphenhydrAMINE 50 MG/ML VIAL IM ONE (03:28)
[2021-10-03] MEDS: PROCHLORPERAZINE 10 MG/2 ML VIAL IM ONE (03:28)
--- NOTE | 2021-10-03 03:29 | NUR ---
pt c/o migraine headache since last night
--- NOTE | 2021-10-03 03:39 | NUR ---
pt medicated per order.
== END 2021-10-03 03:40 | disposition home or self-care (01) ==
LOC: MED 03:03
DX: G43.909 Migraine, unspecified, not intractable, without status migrainosus (principal); E11.9 Type 2 diabetes mellitus without complications; I10 Essential (primary) hypertension; Z79.84 Long term (current) use of oral hypoglycemic drugs; Z79.899 Other long term (current) drug therapy
CPT/HCPCS: 96372; 99284; J0780; J1200; J1885

== ENCOUNTER 2021-11-02 19:05 | Emergency (ER) | payer OTHER ==
[~2021-11-02] VITALS: Ht 185.4 cm; Wt 110.2 kg
[2021-11-02 19:42] VITALS: BP 148/90
--- NOTE | 2021-11-02 19:45 | NUR ---
PATIENT TO BED 5 WITH A STEADY GAIT
--- NOTE | 2021-11-02 19:56 | NUR ---
Dr. Logan examining patient.
[2021-11-02] MEDS ORDERED: METOCLOPRAMIDE 10 MG/2 ML INJ VIAL IM ONE (20:00)
[2021-11-02] MEDS ORDERED: diphenhydrAMINE 50 MG/ML VIAL IVP ONE (20:00)
[2021-11-02] MEDS ORDERED: NACL 0.9% 1,000 ML IV ONE (20:00)
[2021-11-02] MEDS ORDERED: KETOROLAC 30 MG/ML VIAL IVP ONE (20:00)
--- NOTE | 2021-11-02 20:02 | NUR ---
NOTIFIED RADIOLOGY DEPT FOR STAT HEAD CT PER DR. GUY
--- NOTE | 2021-11-02 20:26 | NUR ---
PT TAKEN TO CT
--- NOTE | 2021-11-02 20:26 | NUR ---
PT DOWN FOR CT OF HEAD WITHOUT CONTRAST.
--- NOTE | 2021-11-02 20:32 | NUR ---
PT RETURN FROM CT
--- NOTE | 2021-11-02 20:59 | NUR ---
AT [facility], SPEAKING WITH PT.
[2021-11-02] MEDS ORDERED: KETAMINE 10 MG/ML UD SYR **ER IVP ONE (21:10)
--- NOTE | 2021-11-02 21:15 | NUR ---
PT WAS GIVEN ORDERED REGALN , BENADRYL, AND TORADOL IVP EXPLAINED PURPOSE OF MEDICATION TO PT VERBELIZED UNDERSTADING. BOLUS ALSO RUNNING AT THIS TIME.
--- NOTE | 2021-11-02 22:12 | NUR ---
ER MD ALSO ORDERED KETAMINE VIA IV. EXPLAINED TO PT PURPOSE OF MEDICATION, PT VERBELIZED UNDERSTANDING. ALSO UPDATED HIS MOTHER WAITING IN THE ER WAITING ROOM. REGARDING PT CONDITION.
[2021-11-02] MEDS ORDERED: APAP/BUTAL/CAFF 325/50/40 MG 1 TAB PO STA (22:59)
--- NOTE | 2021-11-02 23:01 | NUR ---
Patient discharged with v/s stable. Written and verbal after care instructions given and explained. Patient alert, oriented and verbalized understanding of instructions. Ambulatory with steady gait. All questions addressed prior to discharge. ID band removed. Patient advised to follow up with PMD. Rx of Fioricet given. Patient educated on indication of medication including possible reaction and side effects. Opportunity to ask questions provided and answered.
[2021-11-02] MEDS ORDERED: ACET-9234 PO (23:02)
== END 2021-11-02 23:01 | disposition home or self-care (01) ==
LOC: MED 19:05
DX: R51.9 Headache, unspecified (principal); F11.10 Opioid abuse, uncomplicated; M54.2 Cervicalgia; M54.6 Pain in thoracic spine; E11.9 Type 2 diabetes mellitus without complications; I10 Essential (primary) hypertension; Z90.49 Acquired absence of other specified parts of digestive tract; Z79.891 Long term (current) use of opiate analgesic; Z79.899 Other long term (current) drug therapy; Z79.1 Long term (current) use of non-steroidal anti-inflammatories (NSAID)
CPT/HCPCS: 70450; 96361; 96374; 96375; 99284; J1200; J1885; J2765